=== PATIENT | female | born 1975 ===

== ENCOUNTER 2018-10-22 06:09 | Observation (INO) | payer MEDICARE, OTHER ==
[2018-10-22 06:23] VITALS: BMI 27.4
[2018-10-22] MEDS ORDERED: SULFANILAMIDE (AVC) VAG CREAM VG ONE (07:09)
[2018-10-22] MEDS ORDERED: Bupivacaine 0.5% Inj(30mL) ONE (07:09)
[2018-10-22] MEDS ORDERED: Lactated Ringer's 1,000 ML IV ONE ×2 (07:10→09:30)
[2018-10-22] MEDS ORDERED: Ferric Subsulfate Sol(60 mL) ONE (07:41)
[2018-10-22] MEDS ORDERED: Strong Iodine Topical Sol. 5%-10% ONE (07:41)
[2018-10-22] MEDS ORDERED: Silver Nitrate Topical - Stick ONE (07:42)
[2018-10-22] MEDS ORDERED: Midazolam 2 MG/2 ML VIAL ONE (07:43)
[2018-10-22] MEDS ORDERED: Propofol 10 mg/ml Inj (20 ML) ONE (07:43)
[2018-10-22 07:47] LABS: BASO % 0.7 % (0.0-2.0); EOS # 0.3 K/uL (0.0-0.7); EOS % 5.6 % (0.0-4.0); HEMOGLOBIN 10.1 g/dL (12.0-16.0); LYMPH # 1.3 K/uL (1.0-4.3); LYMPH % 27.8 % (20.0-40.0); MEAN CELL VOLUME 77.6 fl (81.0-99.0); MEAN CORPUSCULAR HEMOGLOBIN 24.5 pg (27.0-31.0); MEAN CORPUSCULAR HGB CONC 31.6 g/dL (33.0-37.0); MEAN PLATELET VOLUME 8.6 fl (7.2-11.7); MONO # 0.5 K/uL (0.0-0.8); MONO % 9.9 % (0.0-10.0); NEUT # 2.6 K/uL (1.8-7.0); NRBC % 0.4 % (0.0-0.0); RBC 4.14 Mil/uL (3.80-5.20); RED CELL DISTRIBUTION WIDTH 26.7 % (11.5-14.5); WHITE BLOOD COUNT 4.7 K/uL (4.8-10.8)
[2018-10-22] MEDS ORDERED: Succinylcholine 200 mg/10 ml Inj IV ONE (07:48)
[2018-10-22] MEDS ORDERED: Sevoflurane - Inhalation Anesthetic Liq (250 ml) ONE (08:50)
[2018-10-22] MEDS ORDERED: Neostigmine 1:1000 (1 mg/ml) Inj ONE (08:51)
[2018-10-22] MEDS ORDERED: Phenylephrine 10 mg/ml Inj ONE (08:52)
[2018-10-22] MEDS ORDERED: Sodium Chloride 0.9% 1,000 ML IV ONE (08:55)
[2018-10-22] MEDS ORDERED: Rocuronium 10 mg/ml (5 ml) ONE ×2 (09:01→10:30)
[2018-10-22] MEDS ORDERED: Esmolol 100 mg/10ml Inj IV ONE (09:09)
[2018-10-22] MEDS ORDERED: ePHEDrine 50 mg/ml Inj ONE (09:16)
[2018-10-22] MEDS ORDERED: Desflurane Inhalation Anesthetic Liq (240 ml) ONE (09:25)
[2018-10-22] MEDS ORDERED: Dexamethasone 4 mg/1 ml ONE (11:29)
[2018-10-22] MEDS ORDERED: HEMOSTATIC MATRIX 10 ML DIS.NEEDLE TOP ONE (11:45)
--- NOTE | 2018-10-22 12:12 | PCM.SURG1 ---
Surgeon's Initial Post Op Note - Surgeon's Notes Surgeon: Dr. Rutledge Cutter Grinder Operator: Dr. Trevino Type of Anesthesia: General Endo Pre-Operative Diagnosis: 43 yo with Chronic pelvic pain ,menorrhagia, irregular medical therapy, Anemia and failure of medical and surgical therpay Operative Findings: Av uterus 14-15 with Dense adhesions Post-Operative Diagnosis: Same in addition to Dense adhesions Operation Performed: Robotic Hysterectomy , Bilateral salpingectomy, ACE, Cystoscopy and ureteral stents Specimen/Specimens Removed: Uterus, cervix and Bilateral tubes Estimated Blood Loss: EBL {In ML}: 50 Blood Products Given: N/A Drains Used: No Drains Post-Op Condition: Good Date of Surgery/Procedure: 10/22/18 Time of Surgery/Procedure: 12:13
[2018-10-22] MEDS ORDERED: Trimethobenzamide 200 mg/2 mL Inj IM PRN (12:13)
[2018-10-22] MEDS: HYDROmorphone 0.5 mg/0.5 ml ISec IVP PRN ×7 (12:46→13:50)
[2018-10-22 12:57] LABS: HEMOGLOBIN 10.1 g/dL (12.0-16.0); MEAN CELL VOLUME 77.6 fl (81.0-99.0); MEAN CORPUSCULAR HEMOGLOBIN 24.4 pg (27.0-31.0); MEAN CORPUSCULAR HGB CONC 31.4 g/dL (33.0-37.0); RBC 4.13 Mil/uL (3.80-5.20); RED CELL DISTRIBUTION WIDTH 26.7 % (11.5-14.5); WHITE BLOOD COUNT 12.8 K/uL (4.8-10.8)
[2018-10-22] MEDS ORDERED: Oxycodone/Acetaminophen 5/325 mg Tab PO PRN (13:20)
[2018-10-22] MEDS ORDERED: ceFAZolin 2 GM in Sodium Chloride 0.9% 100 ML IVPB ONE (17:00)
[2018-10-22] MEDS: Lactated Ringer's 1,000 ML IV SCH (17:49)
[2018-10-23] MEDS: Lactated Ringer's 1,000 ML IV SCH (02:01)
--- NOTE | 2018-10-23 06:57 | PROCN ---
PROCEDURE DATE: 10/22/2018 SURGEON: Dr. Gross PROCEDURE: Robotic Hysterectomy , Bilateral salpingectomy, ACE, Cystoscopy and ureteral stents This is an addendum to Dr. Rutledge's operative report. I was the field administrative assistant in the surgery. I helped create exposure. I was helpful in obtaining hemostasis. I was helpful in extracting the specimen and closure of the patient. I was there for the entire procedure and the procedure would have not been possible without my assistance. The rest of the procedure will be dictated by Dr. Jessica Rutledge. This concludes my participation in Latosha Ramos's care. Beryl Gross MD
[2018-10-23 08:59] VITALS: RESP 18
[2018-10-23 12:23] LABS: HEMOGLOBIN 9.4 g/dL (12.0-16.0); MEAN CELL VOLUME 77.3 fl (81.0-99.0); MEAN CORPUSCULAR HEMOGLOBIN 24.7 pg (27.0-31.0); RBC 3.81 Mil/uL (3.80-5.20); RED CELL DISTRIBUTION WIDTH 26.7 % (11.5-14.5); WHITE BLOOD COUNT 7.9 K/uL (4.8-10.8)
[2018-10-23 12:34] LABS: BLOOD UREA NITROGEN 11 mg/dl (7-17); CALCIUM 8.7 mg/dL (8.4-10.2); GFR NON-AFRICAN AMERICAN > 60
--- NOTE | 2018-10-23 13:31 | CP.SDSHP ---
Same Day Surgery H & P - Allergies Allergies: Allergies No Known Allergies Allergy (Verified 10/22/18 06:23) - Physical Exam Vital Signs: Vital Signs 10/23/18 10/23/18 08:40 12:15 Temperature 98.4 F 98.9 F Pulse Rate 59 L 58 L Respiratory 18 18 Rate Blood Pressure 105/59 L 107/63 O2 Sat by Pulse 100 99 Oximetry Short Stay Discharge - Short Stay Discharge Admitting Diagnosis/Reason for Visit: D25.9/R10.2 Instructions: Cystoscopy, How to Wash Your Hands Properly, Preventing Falls, Staying Safe in the Hospital, Robot-Assisted Hysterectomy, Fallopian Tube Removal Progress Note/Discharge Note with Instructions: The patient presents patient doing well tolerating diet pain well controlled denies vaginal bleeding Vital signs stable afebrile Abdomen soft nontender nondistended no rebound or guarding Dressings clean dry intact Extremities no Homans Postop day 1 Patient cleared for discharge Patient to follow-up with Dr. Rutledge Vaginal packing removed Prescription for Percocet Motrin Colace and Keflex provided by PMD
[2018-10-23 16:19] VITALS: BP 105/62; PULSE 60; TEMP 97; O2SAT 97
--- NOTE | 2018-11-01 15:39 | OP ---
PROCEDURE DATE: 10/22/18 PREOPERATIVE DIAGNOSES: This is a 43-year-old female with menorrhagia, irregular menstrual period, chronic pelvic pain, fibroid uterus, chronic anemia and failure of medical therapy. Anemia demonstrated that received multiple blood transfusions. POSTOPERATIVE DIAGNOSES: The patient had dense adhesions, multiple adhesions were noted in surgical procedure. 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 PROCEDURE: Robotic hysterectomy, bilateral salpingo-oophorectomy, cystoscopy. 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 TYPE OF ANESTHESIA: General anesthesia with endotracheal tube. FINDINGS: A bulky uterus stuck completely anterior. A large uterus that demonstrated visualization of the lap-band as well as the shunt, all wrapped around the bowels and the omentum. SPECIMEN: Uterus and the cervix and bilateral tubes. ESTIMATED BLOOD LOSS: Minimal. COMPLICATIONS: None. The patient was taken to the recovery room. CLINICAL HISTORY: Rachel was a 43-year-old female known to have a progressive menorrhagia in the content of severe anemia, multiple admissions to the hospital for blood transfusion. Her biopsy demonstrated benign pathology. The patient have requested definite management for the hysterectomy after discussing all the possible options. Due to the multiple surgery, she was advised of the risk factors of this procedure. Risk factors included infection, bleeding, damage to the surrounding organs and tissues such as the large bowel, the small bowel, the bladder. She understood all the risk factors, complication from anesthesia, blood transfusion and possible . Risk factors were explained, but not limited to. Consent was signed in the holding area together in the office and all the risks and benefits were reviewed with the patient. So, once the informed consent was signed, she was then taken to the operating room, placed in dorsal lithotomy position. The patient was prepped and draped in a normal sterile fashion. Beginning at the vagina, Urbina catheter was inserted under sterile conditions and left in site for the remaining of the case. Prior to placing the Urbina, a cystoscopy with urethral stents were placed and FloSeal to identify the ureters while performing the robotic hysterectomy. A weighted speculum was placed in the vagina. The anterior lip of the cervix was grasped with single-tooth tenaculum. The uterus was gently sounded. The VCare was place. Placement was secured. Once the VCare was placed, the weighted speculum was removed from the vagina and attention was turned to the abdomen. So, in that particular instance, beginning at the supraumbilical area, the skin was first infiltrated with 2 mL of bupivacaine solution, then a tummy incision was made with a skin with an 11-blade, then finally the Veress needle was introduced uneventfully in the peritoneal cavity. The opening pressure was less than 8 mm. The peritoneal cavity was insufflated with CO2 gas to a maximal pressure of 20 mmHg. The Veress needle was removed and the 10 mm trocar was introduced without difficulty through the site into the peritoneum. The laparoscope was introduced and confirm of entry was made. The examination of the pelvic cavity demonstrated that the uterus was stuck completely anterior. She had multiple adhesions on the right side and the left side and also the bands were all looped around and there was omentum all around and loops of bowel. So, prior to continuing putting port placements in that particular instance, it was decided to do some lysis of adhesions. So, with the laparoscopy in that particular instance upon examining, it was decided to do again maintaining lysis of adhesion. An 8 mm port was then placed in the left lower quadrant and there were two 8 mm ports that were placed 10 cm lateral to the umbilicus and 2 cm inferiorly. Lysis of adhesions was then performed. Excellent hemostasis was noted. Then, the da Lior robot was then docked in normal fashion. The patient was placed in Trendelenburg position. Expansion of the pelvis showed the uterus was completely anterior. The ovaries appeared normal. The right fallopian tube was cauterized using the PK bipolar cautery and was ligated using the hot lewis. The round ligament was coagulated and cut. The bladder flap was created with the hot shield and the bladder was dissected down from the cervix. The entire procedure was then repeated on the left side. There were multiple adhesions noted. Lysis of adhesions was performed and excellent hemostasis was noted. Once the entire procedure was repeated on the left side, the blue fuentes cuff was then identified and the incision was made in the cervicovaginal junction at the top of the vaginal cuff. This was also repeated posteriorly. The incision was extended laterally. Freeing the uterus from the surrounding vagina, the uterus was then delivered posteriorly to the vagina using the robot assistance. The vaginal cuff was closed with 0-Vicryl. V-Lock sutures was utilized. The ureter was identified bilaterally. The entire pelvis was hemostatic. So, the wall closure and inspection of all the areas was made to ensure hemostasis, all ports were removed under direct visualization and hemostasis was noted. The final port was then opened to release the abdominal gas and removed from the camera. Once that was performed, the skin was closed with 4-0 Monocryl using subcuticular sutures. Steri-Strips were placed. The final needle, sponge, and instrument counts were correct x2. The patient tolerated the procedure. The patient was then taken to the recovery room in stable condition. Jessica Rutledge MD
== END 2018-10-23 17:15 | disposition home or self-care (01) ==
LOC: H.OPSURG 06:09 → H.PEDS 13:10 → H.OPSURG 15:51
PROVIDERS: ADMIT Obstetrics & Gynecology; ATTEND Obstetrics & Gynecology
DX: D25.1 Intramural leiomyoma of uterus (principal); D25.2 Subserosal leiomyoma of uterus; N73.6 Female pelvic peritoneal adhesions (postinfective); N92.0 Excessive and frequent menstruation with regular cycle; R10.2 Pelvic and perineal pain; D64.9 Anemia, unspecified; Z98.84 Bariatric surgery status
CPT/HCPCS: 36415; 52005; 58571; 80048; 85025; 85027; 86850; 86900; 88307; 96374; C1729; C2615; G0378; J0330; J0690; J1100; J1170; J2001; J2250; J2370; J2405; J2704; J2710; J3010; J7030; J7120; S2900